=== PATIENT | female | born 1985 | race Two or more races ===

== ENCOUNTER → 2019-05-23 | Outpatient (CLI) | payer OTHER | END | disposition home or self-care (01) | LOC: PRENATAL 08:00 | DX: O35.3XX1 Maternal care for (suspected) damage to fetus from viral disease in mother, fetus 1 (principal); O99.212 Obesity complicating pregnancy, second trimester ==

== ENCOUNTER 2019-09-17 10:50 | Outpatient (CLI) | payer OTHER | END 2019-09-17 11:20 | disposition home or self-care (01) | LOC: NST 10:50 | DX: Z34.83 Encounter for supervision of other normal pregnancy, third trimester (principal) ==